=== PATIENT | female | born 1950 | race Two or more races ===

== ENCOUNTER 2016-07-28 15:08 | Emergency (ER) | payer MEDICARE ==
[~2016-07-28] VITALS: Ht 142.2 cm; Wt 82.1 kg
--- NOTE | 2016-07-28 15:27 | Emergency Room Report ---
History of Present Illness General Chief Complaint: Syncope Source: Patient Present Illness HPI Patient is a 65-year-old female brought in by family after a syncopal episode. Patient had syncopal episode after reportedly being told that her sister who was in ICU was not doing well. Patient had no injury. Patient stated she felt generalized weakness. She denies episodes of pain. She states that she's not currently need any medical treatment. Patient states that she just feels sad regarding her sister's condition. Allergies: Coded Allergies: No Known Allergies (Unverified , 07/28/16) Patient History Past Medical History: see triage record Reviewed Nursing Documentation: PMH: Agreed, PSxH: Agreed Nursing Documentation-PMH Past Medical History: No History, Except For Hx Cardiac Problems: No - hyperlipidemia,hypothyroidism Hx Hypertension: Yes Review of Systems All Other Systems: negative except mentioned in HPI Physical Exam Vital Signs Date Time Temp Pulse Resp B/P Pulse Ox O2 Delivery O2 Flow Rate FiO2 07/28/16 15:12 98.4 71 16 130/52 97 Room Air Sp02 EP Interpretation: reviewed, normal General Appearance: normal inspection, well appearing, no apparent distress, alert, GCS 15 Head: atraumatic ENT: normal ENT inspection, hearing grossly normal, normal voice Neck: normal inspection, full range of motion, supple, no bony tend Respiratory: normal inspection, lungs clear, normal breath sounds, no respiratory distress, no retraction, no wheezing Cardiovascular #1: regular rate, rhythm, no edema Gastrointestinal: normal inspection, normal bowel sounds, non tender, soft, no guarding, no hernia Genitourinary: no CVA tenderness Musculoskeletal: normal inspection, back normal, normal range of motion Neurologic: normal inspection, alert, responsive, speech normal Psychiatric: normal inspection, judgement/insight normal, mood/affect normal Skin: normal inspection, normal color, no rash Medical Decision Making Diagnostic Impression: Primary Impression: Vasovagal syncope ER Course Patient presented for syncope. Differential diagnosis included but not limited to syncope versus seizure. Potential causes for syncope included arrhythmia, dehydration, acute coronary syndrome, severe anemia, pulmonary embolus. EKG interpreted by me showed normal sinus rhythm with a rate of [address] or T wave changes. The patient presented benign exam. She does not appear to have any current symptoms require hospital admission. The patient is advised to follow up with primary care doctor in 1-2 days. Patient is advised to return if any worsening condition or if any changes in status that are concerning. EKG Diagnostic Results Rate: normal Rhythm: NSR ST Segments: no acute changes Rhythm Strip Diag. Results EP Interpretation: yes Rhythm: NSR, no PVC's, no ectopy Last Vital Signs Date Time Temp Pulse Resp B/P Pulse Ox O2 Delivery O2 Flow Rate FiO2 07/28/16 15:12 98.4 71 16 130/52 97 Room Air Status: improved Disposition: HOME, SELF-CARE Condition: Stable Marco Ortega Jul 28, 2016 15:27
[2016-07-28 15:33] VITALS: BP 130/50
[2016-07-28 15:34] VITALS: BP_SYST 121; BP_SYST 122; BP_DIAS 62; BP_DIAS 70
[2016-07-28 15:35] VITALS: BP 122/62
[2016-07-28 15:49] VITALS: BP 122/62
== END 2016-07-28 15:50 | disposition home or self-care (01) ==
LOC: EMR 15:44
DX: R55 Syncope and collapse (principal); I10 Essential (primary) hypertension; E03.9 Hypothyroidism, unspecified; E78.5 Hyperlipidemia, unspecified
CPT/HCPCS: 99283